=== PATIENT | male | born 1965 | race Hispanic/Latino ===

== ENCOUNTER 2016-12-22 11:34 | Inpatient (IN) | payer MEDICAID, OTHER ==
[2016-12-22 11:34] VITALS: BMI 25.1
[2016-12-22 12:23] LABS: BASO % 0.7 % (0.0-2.0); EOS # 0.1 K/uL (0.0-0.7); EOS % 2.6 % (0.0-4.0); HEMOGLOBIN 13.8 g/dL (12.0-18.0); LYMPH % 42.4 % (20.0-40.0); MEAN CELL VOLUME 90.5 fL (80.0-94.0); MEAN CORPUSCULAR HGB CONC 34.2 g/dL (33.0-37.0); MEAN PLATELET VOLUME 6.8 fL (7.2-11.7); MONO # 0.8 K/uL (0.0-0.8); NEUT # 1.8 K/uL (1.8-7.0); NEUT % 38.3 % (50.0-75.0); NRBC % 0.1 % (0.0-2.0); RBC 4.44 Mil/uL (4.40-5.90); WHITE BLOOD COUNT 4.7 K/uL (4.8-10.8)
[2016-12-22 12:35] LABS: ALBUMIN 3.7 g/dL (3.5-5.0)
[2016-12-22 12:38] LABS: ALB/GLOB RATIO 0.9 (1.0-2.1); AST/SGOT 50 U/L (17-59); GFR AFRICAN-AMERICAN > 60; GFR NON-AFRICAN AMERICAN > 60
[2016-12-22 12:39] LABS: ALT/SGPT 39 U/L (21-72); BLOOD UREA NITROGEN 2 mg/dL (9-20); CALCIUM 8.2 mg/dl (8.6-10.4)
[2016-12-22] MEDS ORDERED: Potassium Chloride 20 mEq ER Tab PO STA (13:03)
[2016-12-22] MEDS ORDERED: Potassium Chloride 20 mEq ER Tab PO ONE (13:09)
[2016-12-22 13:42] LABS: URINE BILIRUBIN NEGATIVE (NEGATIVE); URINE BLOOD NEGATIVE (NEGATIVE); URINE CLARITY Clear (Clear); URINE COLOR Straw (YELLOW); URINE GLUCOSE (UA) NORMAL (Normal); URINE LEUKOCYTE ESTERASE NEG Leu/uL (Negative); URINE NITRATE NEGATIVE (NEGATIVE); URINE PROTEIN NEGATIVE (NEGATIVE); URINE UROBILINOGEN NORMAL mg/dL (0.2-1.0)
[2016-12-22 13:54] LABS: BARBITURATES, UR NEGATIVE (NEGATIVE)
[2016-12-22 13:55] LABS: BENZODIAZEPINES, UR NEGATIVE (NEGATIVE)
[2016-12-22 13:58] LABS: OPIATES, UR NEGATIVE (NEGATIVE); PHENCYCLIDINE, UR NEGATIVE (NEGATIVE)
--- NOTE | 2016-12-22 14:11 | C.PDOC ---
History Of Present Illness <RashardFilibertoSusana L - Last Filed: 12/22/16 18:45> <Stanley Jaramillo - Last Filed: 12/23/16 00:35> 51 year old male presents to ED requesting detox from alcohol. He drinks daily 30-40 beers per day and his last drink was prior to arrival. Patient has been pre-screened. (Susana Wetzel) 0030: pending adm for etoh detox very tremulous per Crisis Eval and my exam Librium 100 mg PO ordered (Stanley Jaramillo) History Per: Patient History/Exam Limitations: no limitations Suicide/Self Injury Attempted (Context): None Associated Symptoms: denies: Suicidal Thoughts, Suicidal Plan Recent travel outside of the [place]: No Additional History Per: Prior Records <Susana Wetzel - Last Filed: 12/22/16 18:45> <Stanley Jaramillo - Last Filed: 12/23/16 00:35> Time Seen by Provider: 12/22/16 11:48 Chief Complaint (Nursing): Substance Abuse Past Medical History Reviewed: Historical Data, Nursing Documentation, Vital Signs - Medical History PMH: Anxiety, Depression Family History: States: Unknown Family Hx - Social History Hx Tobacco Use: Yes Hx Alcohol Use: Yes Hx Substance Use: Yes (rare cocaine) - Immunization History Hx Tetanus Toxoid Vaccination: No Hx Influenza Vaccination: No Hx Pneumococcal Vaccination: No <RashardFilibertoSusana L - Last Filed: 12/22/16 18:45> Review Of Systems Constitutional: Negative for: Fever, Chills Cardiovascular: Negative for: Chest Pain Respiratory: Negative for: Shortness of Breath Gastrointestinal: Negative for: Nausea, Vomiting, Abdominal Pain, Diarrhea Psych: Negative for: Suicidal ideation <RashardFilibertoSusana L - Last Filed: 12/22/16 18:45> Physical Exam - Physical Exam Appears: Non-toxic, No Acute Distress, Other (EtOH on breath ) Skin: Warm, Dry Head: Atraumatic, Normacephalic Eye(s): bilateral: Normal Inspection, EOMI Oral Mucosa: Moist Neck: Supple Chest: Symmetrical, No Deformity Cardiovascular: Rhythm Regular Respiratory: Normal Breath Sounds, No Accessory Muscle Use Extremity: Bilateral: Atraumatic, Normal ROM Neurological/Psych: Oriented x3, Normal Speech <Susana Wetzel - Last Filed: 12/22/16 18:45> ED Course And Treatment - Laboratory Results Result Diagrams: 12/22/16 12:16 12/22/16 12:16 Lab Interpretation: Abnormal O2 Sat by Pulse Oximetry: 95 (room air ) <Susana Wetzel - Last Filed: 12/22/16 18:45> - Laboratory Results Result Diagrams: 12/22/16 12:16 12/22/16 12:16 <Stanley Jaramillo - Last Filed: 12/23/16 00:35> Medical Decision Making <Susana Wetzel - Last Filed: 12/22/16 18:45> <Stanley Jaramillo - Last Filed: 12/23/16 00:35> Medical Decision Making: Labs ordered and reviewed. In my clinical judgment patient is medically cleared and will be placed on obs, pending sobriety (Susana Wetzel) ED OBSERVATION Date of observation admission: 12/22/16 Time of observation admission: 13:00 <Susana Wetzel - Last Filed: 12/22/16 18:45> <Stanley Jaramillo - Last Filed: 12/23/16 00:35> - Observation admission statement Patient is being placed in observation because:: Intoxication (Susana Wetzel) - Goals of Observation Goals of observation are:: sobriety, crisis full eval and dispo (Susana Wetzel) - Progress Note Progress Note: 12/22/16 14:12 Patient resting in bed, no acute distress 12/22/16 18:12 Patient remains in bed, sleeping, easily arousable 12/22/16 19:00 Transfer of care to building inspector Dr Jewell, pending sobriety, crisis eval and dispo of admit for detox (Susana Wetzel) Disposition <Susana Wetzel - Last Filed: 12/22/16 18:45> Doctor Will See Patient In The: Office - Disposition Disposition Time: 00:30 <Stanley Jaramillo - Last Filed: 12/23/16 00:35> - Disposition Disposition: HOSPITALIZED Condition: GOOD - Clinical Impression Clinical Impression: Alcohol dependence - Scribe Statement The provider has reviewed the documentation as recorded by the Scribe <Susana Wetzel - Last Filed: 12/22/16 18:45> <Stanley Jaramillo - Last Filed: 12/23/16 00:35> - Scribe Statement Radha Sibley All medical record entries made by the Scribe were at my direction and personally dictated by me. I have reviewed the chart and agree that the record accurately reflects my personal performance of the history, physical exam, medical decision making, and the department course for this patient. I have also personally directed, reviewed, and agree with the discharge instructions and disposition. (Susana Wetzel)
--- NOTE | 2016-12-23 01:55 | PCM.BM ---
<Ginger Beck - Last Filed: 12/23/16 11:01> Treatment Plan Problems - Problems identified on initial assessmt Alcohol Dependence Date Initiated: 12/23/16 Time Initiated: :53 Assessment reference: NA Status: Active Treatment assets and liabiliti Patient Assests: cooperative, ADL independent, negotiates basic needs Patient Liabilities: live alone, physical pain, financial problems, substance abuse, medical problems - Milieu Protocol Maintain good personal hygiene: daily Encourage regular showers, daily Remind patient to perform daily oral care Conduct patient checks and document Observation sheet: Q15 minutes, Constant, 1: 1 Maintain personal safety: every shift Educate patient to report safety concerns to staff, every shift Monitor environment for contraband/sharps Medication safety: Monitor for expected outcome, potential side effects: every shift, Assess barriers to learning: every shift, Assess readiness for medication education: every shift <Dalia Hamilton - Last Filed: 12/23/16 13:43> Treatment Plan Problems - Problems identified on initial assessmt Alcohol Dependence Date Initiated: 12/23/16 Time Initiated: :53 Assessment reference: NA Status: Active Problem 1 Date Initiated: 12/23/16 Time Initiated: :53 Assessment reference: NA Status: Active Family Contact Family involvement: Famliy/SO not involved Family contact: Patient agrees to contact - Goals for Treatment Patient goals for treatment: Transition to inpatient rehab following detox. Discharge/Continuing Care - Education Needs Education Needs: Patient Medication, Patient Diagnosis/Disease Process, Patient Coping Skills, Patient Anger Management skills, Patient Placement options, Patient Community resources - Discharge Discharge Criteria: Tolerates medication w/o severe side effects, Free of Suicidal thoughts, Normal sleep pattern, No longer exhibiting s/s of withdrawal , Reduction of target symptoms Discharge to:: Substance Abuse Rehab - Treatment Team Participation Patient/Family/SO Statement: 12/23/16 13:44 "If I don't have a job anymore, I'll consider rehab". Was Patient/Family/SO present at Treatment Team Meeting: Yes <Nany Thomason - Last Filed: 12/23/16 20:37> - Diagnosis (1) Alcohol dependence Status: Acute Interventions: 12/23/16 20:37 * Assess 7x/week regarding severity of withdrawal * Educate regarding risks, benefits, side effects and alternatives of medications * Use Motivational Interviewing for abstinence * Use CBT for relapse prevention * Medication management for withdrawal symptoms * Encourage medication assisted treatment *
--- NOTE | 2016-12-23 13:37 | PCM.PSYCH ---
Initial Psychiatric Evaluation - Initial Psychiatric Evaluation Type of Admission: Voluntary Legal Status: Capacity Chief Complaint (in patient's own words): "I want to detox from alcohol" History of Present Illness and Precipitating Events: The pt is seen, chart reviewed and case discussed. Mr. Early is a 51 yo male who presented to the hospital requesting alcohol detox. Patients MIKE was .41 on admission. The patient is currently experiencing alochol wxw sxs; he is shaking and unable to concentrate. Patient was admitted 2 years ago for alcohol detoxification. Patient said that his drinking began at 11 years old, but became problematic after high school. 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 He states that he "lost everything" due to gambling recently. He states that he drinks 30-40 beers/day, and denies hard liquor or wine. Patient has 1 pervious rehab attempt at [facility] for a few weeks, it was unsuccessful for unspecified reasons. He is crying and states feeling anxious and depressed. He denies DT's or any seizure activity. He denies hallucinations. He denies brandy ideation / plan. Past Psychiatric Hx: 1 prior admission for alcohol detox. Smokes 1 pack/day; denies benzodiazepines and marijuana. Admits to using cocaine, and unspecified drugs "if they presented themselves" while he was drinking. Other Medical Hx: Spinal stenosis, pinched nerve Social Hx : He is currently single; 5 siblings; 25 year old child; lives alone ; unemployed. He complains of not being able to eat due to financial reasons; he states eating 3 times in the last 6 weeks, though he looks OK. Patient is most concerned about being evicted, unable to collect unemployment checks, and finding a new job. Family Hx: Siblings all drink alcohol heavily Family Psychiatric Hx: None Current Medications: Active Medications Generic Name Dose Route Start Last Admin Trade Name Freq PRN Reason Stop Dose Admin Chlordiazepoxide 25 mg 12/23/16 01:17 12/23/16 10:25 Librium PO 25 mg Q4H PRN Administration Alcohol Withdrawal Chlordiazepoxide 50 mg 12/23/16 10:20 12/23/16 13:25 Librium PO 12/27/16 05:59 50 mg Q6 JAMES Administration Taper Clonidine HCl 0.1 mg 12/23/16 01:17 12/23/16 10:25 Catapres PO 0.1 mg Q4H PRN Administration Symptoms of alcohol withdrawl Gabapentin 300 mg 12/23/16 14:00 12/23/16 13:24 Neurontin PO 300 mg TID JAMES Administration Pneumococcal Polyvalent Vaccine 0.5 ml 12/26/16 10:00 Pneumovax 23 Vaccine IM 12/26/16 10:01 .ONCE ONE Trazodone HCl 50 mg 12/23/16 01:17 Desyrel PO HS PRN Insomnia Past Psychiatric History - Past Psychiatric History Previous Treatment History: None Pertinent Medical Hx (Current Medical&Sleep Prob, Allergies): Allergies Allergy/AdvReac Type Severity Reaction Status Date / Time No Known Allergies Allergy Verified 05/31/15 18:16 Patient Own Control 1 applic TOP DAILY 12/22/16 Review of Systems - Neurological Neurological: As Per HPI, Tremor. absent: Convulsions - Psychiatric Psychiatric: Abnormal Sleep Pattern, Anxiety, Depression, Hopelessness. absent : Hallucinations, Homicidal Ideation, Suicidal Ideation Mental Status Examination - Personal Presentation Personal Presentation: Looks older than stated age (unkempt) - Affect Affect: Depressed - Motor Activity Motor Activity: Calm - Reliability in Providing Information Reliability in Providing Information: Fair - Speech Speech: Organized - Mood Mood: Depressed, Anxious Additional comments: Patient was crying - Formal Thought Process Formal Thought Process: No Impairment - Obsessions/Compulsions Obsessions: No Compulsions: No - Cognitive Functions Orientation: Person, Place, Situation, Time Sensorium: Alert Attention/Concentration: Attentive Abstract Thinking: [place] Estimate of Intelligence: Average Judgement: Intact, as evidence by: Insight regarding need for hospitalization Memory: Recent intact, as evidence by: Ability to recall events of the day, Remote intact, as evidenced by: Abilit to recall sig. life events - Risk Risk: Seizure, Withdrawal, Diminished functioning - Strength & Assets Inventory Strength & Assets Inventory: Cooperative - Limitations Limitations: Living alone, Other (likely lost job and "lots of money.") DSM 5 DX - DSM 5 DSM 5 Diagnosis: Alcohol withdrawal Alcohol use disorder - severe Major Depressive Disorder - severe Gambling Disorder - severe Tobacco use d/o - Recommended/Plan of Treatment Treatment Recommendations and Plan of Treatment: Librium detox, taper Gabapentin for augmentation As needed meds and vitamins Attend groups and activities [place] for abstinence and CBT for relapse prevention Support and psychoeducation Consider and encourage MAT Coordinate AA meetings upon discharge After care planning by SW 32 min Projected ELOS: 5-6 days Prognosis: Good with tx course - Smoking Cessation Smoking Cessation Initiated: Yes
[2016-12-23] MEDS: Multiple Vitamins Tab PO SCH (21:13)
[2016-12-24 08:04] LABS: ALB/GLOB RATIO 1.1 (1.0-2.1); ALBUMIN 3.8 g/dL (3.5-5.0); ALT/SGPT 42 U/L (21-72); AST/SGOT 62 U/L (17-59); BLOOD UREA NITROGEN 11 mg/dL (9-20); CALCIUM 9.7 mg/dl (8.6-10.4); GFR AFRICAN-AMERICAN > 60; GFR NON-AFRICAN AMERICAN > 60; MAGNESIUM 1.7 mg/dL (1.6-2.3)
[2016-12-24] MEDS ORDERED: Aluminum Hydroxide/Magnesium Hydroxide Susp (30 mL) PO PRN (08:43)
[2016-12-24] MEDS: Multiple Vitamins Tab PO SCH (09:45)
--- NOTE | 2016-12-24 15:21 | PCM.PYCHPN ---
Psychiatric Progress Note - Psychiatric Progress Note Patient seen today, length of contact: 16 min Patient Chief Complaint: "I can't sleep well" Problems Identified/Issues Discussed: The pt is seen, chart reviewed, case discussed with staff. The pt states not sleeping; says he was tossing and turning the entire night. The pt admits to diarrhea The pt denies nausea or vomiting The pt's speech is slurred. The pt exhibits tremors. Symptoms are improving but needs more time to stabilize. The pt is compliant with medications and reports no side-effects. The pt states that he wants to speak to his boss about his job. After care discussed, support and psychoeducation given. Medication Change: Yes (Librium detox taper) Medical Record Reviewed: Yes Mental Status Examination - Cognitive Function Orientation: Person, Place, Situation, Time Memory: Intact Attention: WNL Concentration: WNL Association: WNL Fund of Knowledge: WNL - Mood Mood: Depressed, Anxious - Affect Affect: Constricted, Depressed - Speech Speech: Slurred - Formal Thought Process Formal Thought Process: No Impairment - Suicidal Ideation Suicidal Ideation: No - Homicidal Ideation Homicidal Ideation: No Goal/Treatment Plan - Goal/Treatment Plan Need for Continued Stay: Discharge may exacerbated symptoms, Severe functional impairment Progress Toward Problem(s) and Goals/Treatment Plan: Seroquel for sleep Imodium for diarrhea Librium detox, taper Gabapentin for augmentation As needed meds and vitamins Attend groups and activities [place] for abstinence and CBT for relapse prevention Support and psychoeducation Consider and encourage MAT Coordinate AA meetings upon discharge After care planning by counselor; Counselor will speak to patients boss with patient present for the conversation. Estimated Date of D/C: 12/27/16 - Smoking Cessation Smoking Cessation Initiated: No
[2016-12-25] MEDS: Multiple Vitamins Tab PO SCH (10:10)
--- NOTE | 2016-12-25 16:09 | PCM.PYCHPN ---
Psychiatric Progress Note - Psychiatric Progress Note Patient seen today, length of contact: 15 min Patient Chief Complaint: "I'm a little better" Problems Identified/Issues Discussed: The pt states that he slept better The pt admits to diarrhea, despite taking imodium The pt exhibits tremors, but less than yesterday The pt speech is slurred, but less than yesterday Symptoms are improving but needs more time to stabilize The pt is compliant with medications and reports no side-effects. The pt's states his gait is uneasy The pt admits to continued anxiety and depression over his unemployment status and being homeless The pt has eczema on forehead and hands, he requests medication for it The pt delayed speaking with his boss yesterday; he states that he will speak to his boss with SW present either today or tomorrow. After care discussed, support and psychoeducation given Medication Change: Yes (Librium detox taper) Medical Record Reviewed: Yes Mental Status Examination - Cognitive Function Orientation: Person, Place, Situation, Time Memory: Intact Attention: WNL Concentration: WNL Association: WNL Fund of Knowledge: WNL - Mood Mood: Depressed, Anxious - Affect Affect: Broad, Depressed - Speech Speech: Slurred - Formal Thought Process Formal Thought Process: No Impairment - Suicidal Ideation Suicidal Ideation: No - Homicidal Ideation Homicidal Ideation: No Goal/Treatment Plan - Goal/Treatment Plan Need for Continued Stay: Discharge may exacerbated symptoms, Severe functional impairment Progress Toward Problem(s) and Goals/Treatment Plan: Seroquel for sleep Imodium for diarrhea Librium detox, taper Gabapentin for augmentation As needed meds and vitamins Attend groups and activities [place] for abstinence and CBT for relapse prevention Support and psychoeducation Consider and encourage MAT Coordinate AA meetings upon discharge Start eczema medication, topical cream After care planning by counselor; Counselor will speak to patients boss with patient present for the conversation. Estimated Date of D/C: 12/27/16 - Smoking Cessation Smoking Cessation Initiated: No
[2016-12-25] MEDS: Ammonium Lactate 12% Lotion (225 g) EXT SCH (18:58)
[2016-12-26] MEDS: Ammonium Lactate 12% Lotion (225 g) EXT SCH ×2 (09:09→18:32)
[2016-12-26] MEDS: Multiple Vitamins Tab PO SCH (09:09)
[2016-12-26] MEDS ORDERED: Pneumococcal 23-Valent Vaccine IM ONE (10:00)
--- NOTE | 2016-12-26 18:25 | PCM.PYCHPN ---
Psychiatric Progress Note - Psychiatric Progress Note Patient seen today, length of contact: 15 min Patient Chief Complaint: "I'm much better" Problems Identified/Issues Discussed: The pt is seen, chart reviewed, case discussed with staff. The pt is compliant with medications and reports no side-effects. Symptoms are improving but needs more time to stabilize. After care discussed, support and psychoeducation given. Medication Change: Yes (Librium detox taper) Medical Record Reviewed: Yes Mental Status Examination - Cognitive Function Orientation: Person, Place, Situation, Time Memory: Intact Attention: WNL Concentration: WNL Association: WNL Fund of Knowledge: WNL - Mood Mood: Depressed, Anxious - Affect Affect: Broad, Depressed - Speech Speech: Slurred - Formal Thought Process Formal Thought Process: No Impairment - Suicidal Ideation Suicidal Ideation: No - Homicidal Ideation Homicidal Ideation: No Goal/Treatment Plan - Goal/Treatment Plan Need for Continued Stay: Discharge may exacerbated symptoms, Severe functional impairment Progress Toward Problem(s) and Goals/Treatment Plan: Seroquel for sleep Imodium for diarrhea Librium detox, taper Gabapentin for augmentation As needed meds and vitamins Attend groups and activities [place] for abstinence and CBT for relapse prevention Support and psychoeducation Consider and encourage MAT - Naltrexone upon d/c Coordinate AA meetings upon discharge Start eczema medication, topical cream He will resume work but also go to AA and consider IOP in [place] Estimated Date of D/C: 12/27/16
--- NOTE | 2016-12-27 09:46 | PCM.PYCHDC ---
Mental Status Examination - Mental Status Examination Orientation: Person Memory: Intact Discharge Summary - Discharge Note Consultations:: List each consultation separately and include: 1. Reason for request. 2. Findings. 3. Follow-up Summary of Hospital Course include:: 1. Description of specific treatment plan utilized for patients during their course of treatmen. 2. Summarize the time- course for resolution of acute symptoms and/or regressed behaviors. 3. Describe issues identified and worked on during hospitalization. 4. Describe medication utilized. 5. Describe medical problems identified and treated. 6. Reassessment of suicide risk Summary of Hospital Course: The pt is seen, chart reviewed and case discussed. Mr. Early is a 51 yo male who presented to the hospital requesting alcohol detox. Patients MIKE was .41 on admission. The patient is currently experiencing alochol wxw sxs; he is shaking and unable to concentrate. Patient was admitted 2 years ago for alcohol detoxification. Patient said that his drinking began at 11 years old, but became problematic after high school. 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 He states that he "lost everything" due to gambling recently. He states that he drinks 30-40 beers/day, and denies hard liquor or wine. Patient has 1 pervious rehab attempt at [facility] for a few weeks, it was unsuccessful for unspecified reasons. He is crying and states feeling anxious and depressed. He denies DT's or any seizure activity. He denies hallucinations. He denies brandy ideation / plan. Past Psychiatric Hx: 1 prior admission for alcohol detox. Smokes 1 pack/day; denies benzodiazepines and marijuana. Admits to using cocaine, and unspecified drugs "if they presented themselves" while he was drinking. Other Medical Hx: Spinal stenosis, pinched nerve Social Hx : He is currently single; 5 siblings; 25 year old child; lives alone ; unemployed. He complains of not being able to eat due to financial reasons; he states eating 3 times in the last 6 weeks, though he looks OK. Patient is most concerned about being evicted, unable to collect unemployment checks, and finding a new job. Family Hx: Siblings all drink alcohol heavily Family Psychiatric Hx: None - Diagnosis (1) Alcohol dependence Current Visit: Yes Status: Acute - Final Diagnosis (DSM 5) Condition upon Discharge: GOOD Disposition: HOME/ ROUTINE Follow-up Treatment Plan: Seroquel for sleep Imodium for diarrhea Librium detox, taper Gabapentin for augmentation As needed meds and vitamins Attend groups and activities [place] for abstinence and CBT for relapse prevention Support and psychoeducation Consider and encourage MAT - Naltrexone upon d/c Coordinate AA meetings upon discharge Start eczema medication, topical cream He will resume work but also go to AA and consider IOP in [place]
[2016-12-27] MEDS ORDERED: Naltrexone 25 MG TAB PO SCH (10:00)
[2016-12-27] MEDS: Ammonium Lactate 12% Lotion (225 g) EXT SCH (10:08)
[2016-12-27] MEDS: Multiple Vitamins Tab PO SCH (10:08)
[2016-12-27 10:44] VITALS: BP 117/84; PULSE 105; RESP 20; TEMP 98.7; O2SAT 96
== END 2016-12-27 11:25 | disposition home or self-care (01) | DRG 895 ==
LOC: C.ER 11:34 → C.9OBSV 13:03 → C.7D 12-23 00:58 → OBSVTOIN 12-23 00:58
PROVIDERS: ADMIT Psychiatry & Neurology Psychiatry; ATTEND Psychiatry & Neurology Psychiatry
PROC: HZ2ZZZZ Detoxification Services for Substance Abuse Treatment (ICD-10-PCS; principal; 2016-12-23)
PROC: HZ59ZZZ Individual Psychotherapy for Substance Abuse Treatment, Supportive (ICD-10-PCS; 2016-12-23)
PROC: HZ46ZZZ Group Counseling for Substance Abuse Treatment, Psychoeducation (ICD-10-PCS; 2016-12-23)
PROC: GZ3ZZZZ Medication Management (ICD-10-PCS; 2016-12-23)
DX: F10.230 Alcohol dependence with withdrawal, uncomplicated (principal); F32.2 Major depressive disorder, single episode, severe without psychotic features; F41.9 Anxiety disorder, unspecified; F17.210 Nicotine dependence, cigarettes, uncomplicated; Y90.2 Blood alcohol level of 40-59 mg/100 ml; L30.9 Dermatitis, unspecified; F63.0 Pathological gambling; Z59.0 Homelessness